=== PATIENT | male | born 1965 | race Caucasian/White ===

== ENCOUNTER → 2020-01-10 09:37 | Outpatient (CLI) | payer OTHER, SELFPAY ==
[2020-01-10 10:07] LABS: Adenovirus,PCR Not Detected (NotDetected); Bordetella Pertussis Not Detected (NotDetected); Chlamydophila Pneumoniae, PCR Not Detected (NotDetected); Coronavirus 229E Not Detected (NotDetected); Coronavirus NL63 Not Detected (NotDetected); Coronavirus OC43 Not Detected (NotDetected); Coronovirus HKU1,PCR Not Detected (NotDetected); Human Metapneumovirus Not Detected (NotDetected); Influenza A, PCR Not Detected (NotDetected); Influenza AH1, 2009 Not Detected (NotDetected); Influenza AH1, PCR Not Detected (NotDetected); Influenza AH3,PCR Not Detected (NotDetected); Influenza B, PCR Not Detected (NotDetected); Mycoplasma Pneumoniae, PCR Not Detected (NotDetected); Parainfluenza 1, PCR Not Detected (NotDetected); Parainfluenza 2, PCR Not Detected (NotDetected); Parainfluenza 3, PCR Not Detected (NotDetected); Parainfluenza 4, PCR Not Detected (NotDetected); Respiratory Syncytial Virus Not Detected (NotDetected); Rhinovirus/Enterovirus Not Detected (NotDetected)
[2020-01-10 11:30] LABS: Coronavirus 19, PCR Detected (NotDetected)
== END ==
PROVIDERS: PCP Internal Medicine Adolescent Medicine; Visit Provider Internal Medicine Adolescent Medicine
DX: U07.1 COVID-19 (principal)
CPT/HCPCS: 87581; 87633; 87798

== ENCOUNTER → 2020-02-17 10:58 | Outpatient (CLI) | payer OTHER, SELFPAY ==
--- NOTE | 2020-02-17 | CA_ITS ---
APPROVED REPORT EXAM: Comprehensive 2D, Doppler, and color-flow Echocardiogram First Assist: Marizol Hodges RT(R) Ht: 5 ft 4 in Wt: 165lbs BSA: 1.80 BP: 120/65 mmHg Indications: tachycardia on exertion, COVID+ 01/2020, hospitalized 6 days with COVID and SOA, chest tightness 2D Dimensions LVOT 1.80 cm (M/F) 1.5-2.5 M-Mode Dimensions RVDd 2.52 cm (0.9-2.6) LVDd 4.67 cm (3.5-5.7) LVDs 3.20 cm (3.5-5.7) IVSd 0.84 cm (0.6-1.1) PWd 0.81 cm (0.6-1.1) EF (Teich) 59.30% FS 31.50% EDV (Teich) 100.80 mL ESV (Teich) 41.00 mL LV Diastology E/A Ratio 0.90 Mitral Valve MV A Velocity 82.00 (40-130 cm/s) Left Ventricle Left atrium is normal size, left ventricle is normal size, left ventricle wall thickness is upper limit of the normal, visually estimated ejection fraction of 55% with no regional wall motion abnormality, grade 1 diastolic dysfunction seen without tissue Doppler evidence of raise left atrial pressure. Right Ventricle Right atrium is normal size, right ventricle is mildly enlarged with normal contractility. Aortic Valve Aortic valve is grossly normal, there is no aortic stenosis or aortic insufficiency. Mitral Valve Mitral valve is grossly normal, there is mild mitral regurgitation. Tricuspid Valve Tricuspid valve grossly normal, there is mild tricuspid regurgitation, tricuspid regurgitation jet velocity is inadequate for calculation of the right ventricular systolic pressure. Pulmonic Valve Pulmonic valve is poorly visualized. Great Vessels Aortic root is normal size. Pericardium No significant pericardial effusion noted. Conclusion 1. Normal left ventricular size, preserved left ventricular systolic function, visually estimated ejection fraction 55% with no regional wall motion abnormality, grade 1 diastolic dysfunction seen without tissue Doppler evidence of raise left atrial pressure. 2. Qualitatively mildly enlarged right ventricle with normal contractility. 3. Mild mitral and tricuspid regurgitation. 4. No significant pericardial effusion noted. Electronically signed by : Grant Michaels, 02/17/2020 11:49:39
[2020-02-17 13:50] LABS: INR 1.12 (0.9-1.1); Prothrombin Time 11.4 seconds (9.4-11.8)
[2020-02-17 14:46] LABS: Hemoglobin A1C 6.2 % (4.0-6.0)
[2020-02-17 14:51] LABS: NT Pro Brain Natriuretic Pep. 17.1 pg/mL (0-125)
[2020-02-17 14:54] LABS: Troponin I < 0.01 ng/ml (0.00-0.034)
[2020-02-17 14:56] LABS: 25-OH Vitamin D, Total 51.4 ng/mL (30-100)
[2020-02-17 15:21] LABS: Magnesium 2.1 mg/dl (1.6-2.3)
[2020-02-17 15:38] LABS: Free Thyroxine Index 2.7 ug/dL (5.93-13.13); T4 (Thyroxine) 9.7 ug/dl (5.53-11.0); Triiodothryronine (T3) Uptake 28 % (23.5-40.5)
[2020-02-17 16:09] LABS: Vitamin B12 758 pg/mL (239-931)
== END ==
PROVIDERS: Physician Assistant; PCP Internal Medicine Adolescent Medicine; Visit Provider Internal Medicine Adolescent Medicine
DX: R00.1 Bradycardia, unspecified (principal); B34.2 Coronavirus infection, unspecified; R53.81 Other malaise
CPT/HCPCS: 82306; 82607; 83036; 83735; 83880; 84436; 84479; 84484; 85610; 93306

== ENCOUNTER → 2020-02-21 08:24 | Outpatient (CLI) | payer OTHER, SELFPAY ==
--- NOTE | 2020-02-21 08:29 | CT_ITS ---
PROCEDURE: CT CHEST WO CON CLINICAL INDICATION: COVID, tachycardia, shortness of breath covid history no prior COMPARISON: CT CTA Chest for Pulmonary Embolus-RV/LV Ratio if Pos from 01/20/2020 TECHNIQUE: Axial images obtained with sagittal and coronal reformats. All CT scans at the facility use one or more dose reduction, viz: automated exposure control, ma/kV adjustment per patient size (including targeted exams where dose is matched to indication, i.e. head), or iterative reconstruction technique. FINDINGS: HEART AND MEDIASTINAL STRUCTURES: There are few small mediastinal lymph nodes measuring up to 1.5 by 0.7 cm in the precarinal region. A small AP lymph node is present at 1 cm not significantly changed. Normal heart size. No evidence of pericardial effusion. LUNGS AND PLEURAL SPACES: There are faint bilateral areas of ground-glass opacity/mosaic attenuation with some minimal atelectatic changes in the lung bases. The bilateral ground-glass opacities and consolidation has however shown moderate improvement compared to the previous study. No effusions are evident. No acute bony findings. High-resolution images are also obtained showing no evidence of pulmonary fibrotic change or interlobular septal thickening BONY STRUCTURES: No acute bony abnormalities apparent. UPPER ABDOMEN: There are at least 4 hypodense lesions of the liver the largest in the right hepatic lobe posteriorly segment 6 measuring 2.3 cm consistent with hepatic cysts ADDITIONAL FINDINGS: No other significant abnormalities. IMPRESSION: 1. Persistent but improving ground-glass opacities/mosaic attenuation of the lung consistent with improvement in and covid pneumonia 2. No evidence of pulmonary fibrosis 3. Hepatic cysts Dictated by: Nilson Sim MD 02/24/2020 09:18 Nilson Sim MD in [place] 02/24/2020 09:18
== END ==
PROVIDERS: PCP Internal Medicine Adolescent Medicine; Visit Provider Internal Medicine Adolescent Medicine
DX: U07.1 COVID-19 (principal)
CPT/HCPCS: 71250

== ENCOUNTER → 2020-02-29 12:00 | Outpatient (CLI) | payer OTHER, SELFPAY ==
[2020-02-29 13:37] LABS: Coronavirus 19 IgG Antibody Positive (Negative)
[2020-02-29 13:38] LABS: Coronavirus 19 IgM Antibody Positive (Negative)
== END ==
PROVIDERS: Visit Provider Internal Medicine Adolescent Medicine
DX: Z01.84 Encounter for antibody response examination (principal)
CPT/HCPCS: 36415; 86328

== ENCOUNTER → 2020-05-07 16:36 | Outpatient (CLI) | payer OTHER, SELFPAY | PROVIDERS: PCP Internal Medicine Adolescent Medicine; Visit Provider Internal Medicine Adolescent Medicine | DX: G47.30 Sleep apnea, unspecified (principal) | CPT/HCPCS: 95806 ==

== ENCOUNTER 2020-11-10 18:05 | Emergency (ER) | payer OTHER, SELFPAY ==
[2020-11-10 18:07] VITALS: BP 144/92; PULSE 91; RESP 16; TEMP 36.9; O2SAT 97; BMI 27.4
--- NOTE | 2020-11-10 18:18 | [facility].EDGENADL ---
ED Disposition Clinical Impression: Metatarsal bone fracture Disposition: Home, Self-Care Condition on Discharge: Good Additional Instructions: follow up with PCP Referrals: Lenny Stauffer MD [Primary Care Provider] - - Critical Care Critical Care Time: No Attestation: On 11/10/20, the high probability of a clinically significant, sudden or life threatening deterioration of the following system(s) required my full and direct attention, intervention and personal management. The time I documented below is in addition to time spent performing reported procedures but includes the following listed in this critical care notation. Medical Decision Making - Medical Records MR Comment: X-ray of the left foot shows fifth metatarsal fracture at the base. He was provided with a boot. - Armando Inquiry Pt receiving controlled substance: No Armando was queried for this patient: No Vital Signs: 11/10/20 18:07 Temperature 98.5 F Temperature Source Oral Pulse Rate [Left] 91 H Respiratory Rate 16 Blood Pressure [Right Arm] 144/92 H Blood Pressure Mean [Right Arm] 109 02 Sat by Pulse Oximetry 97 Orders (Tests/Meds): ORDERS Category Date Time Status XR foot LT min 3V Stat Exams 11/10/20 18:23 Taken General Adult HPI - General Stated complaint: AO 11/10 injured Left foot Time Seen by Provider: 11/10/20 18:18 Mode of Arrival: Ambulatory Source of Information: Patient Limitations: No Limitations - History of Present Illness HPI narrative: -year-old male after walking long distance he complained of left foot pain mostly on the dorsal and dorsal part of the left foot.no reported injuries. He had fifth metatarsal bone fracture of the left foot in the past. Onset (ago): hour(s) (2) Location: lower extremity Severity: moderate Severity scale (1-10): 3 Quality: aching, constant Consistency: constant Relieving factors: none Exacerbating factors: movement Associated symptoms: denies other symptoms Treatments prior to arrival: none - Related Data Previous Rx's Medication Instructions Recorded metoprolol succinate 25 mg 25 mg PO DAILY #90 tab 02/24/20 tablet,extended release 24 hr Allergies Allergy/AdvReac Type Severity Reaction Status Date / Time No Known Allergies Allergy Unverified 11/03/19 09:58 [facility] History - Hepatitis A Screen Drug use history?: No High risk sexual behaviors?: No History of sexually transmitted infection?: No Attestation statement:: This patient has been screened for Hepatitis A risk factors. ROS Obtained: Yes All systems reviewed & no additional complaints - Constitutional Constitutional: Reports system reviewed and no additional complaints, except as docu - Eyes Eyes: Reports system reviewed and no additional complaints, except as docu - ENT Ears, Nose, Mouth, and Throat: Reports system reviewed and no additional complaints, except as docu - Cardiovascular Cardiovascular: Reports system reviewed and no additional complaints, except as docu - Respiratory Respiratory: Reports system reviewed and no additional complaints, except as docu - Gastrointestinal Gastrointestingal: Reports: system reviewed and no additional complaints, except as docu - Genitourinary Male Genitourinary: Reports system reviewed and no additional complaints, except as docu Female Genitourinary: Reports system reviewed and no additional complaints, except as docu - Musculoskeletal Musculoskeletal: Reports system reviewed and no additional complaints, except as docu - Neurologic Neurologic: Reports system reviewed and no additional complaints, except as docu - Hematologic/Lymphatic Henatologic/Lymphatic: Reports system reviewed and no additional complaints, except as docu - Allergic/Immunologic Allergic/Immunologic: Reports system reviewed and no additional complaints, except as docu Physical Exam - General General appearance: alert, in no apparent distress
--- NOTE | 2020-11-10 18:23 | XR_ITS ---
PROCEDURE INFORMATION: Exam: XR Left Foot Exam date and time: 11/10/2020 6:23 PM Age: 55 years old Clinical indication: Pain and injury or trauma; Blunt trauma; Left; Foot and metatarsal; Patient HX: Fall while running, pain at the base of the 5th metatarsal TECHNIQUE: Imaging protocol: XR Left foot. Views: 3 or more views. COMPARISON: No relevant prior studies available. FINDINGS: Bones/joints: There is a fracture demonstrated at the base of the 5th metatarsal which is relatively nondisplaced. No other fracture dislocation or discrete. Soft tissues: Normal. IMPRESSION: There is a fracture demonstrated at the base of the 5th metatarsal which is relatively nondisplaced.
[2020-11-10 18:59] VITALS: BP 126/74; PULSE 78; RESP 16; TEMP 36.6; O2SAT 98
== END 2020-11-10 19:01 | disposition home or self-care (01) ==
PROVIDERS: Emergency Provider Internal Medicine; PCP Internal Medicine Adolescent Medicine
DX: S92.355A Nondisplaced fracture of fifth metatarsal bone, left foot, initial encounter for closed fracture (principal)
CPT/HCPCS: 29515; 73630; 99282

== ENCOUNTER → 2021-06-08 20:46 | Outpatient (CLI) | payer OTHER, SELFPAY ==
[2021-06-08 21:04] LABS: Influenza A, PCR Not Detected (NotDetected); Influenza B, PCR Not Detected (NotDetected)
[2021-06-08 21:25] LABS: Coronavirus 19, PCR Detected (NotDetected)
== END ==
PROVIDERS: PCP Internal Medicine Adolescent Medicine; Visit Provider Emergency Medicine
DX: U07.1 COVID-19 (principal); J02.9 Acute pharyngitis, unspecified
CPT/HCPCS: C9803; U0003; U0005